=== PATIENT | male | born 1955 | race Caucasian/White ===

== ENCOUNTER → 2021-01-01 | Outpatient (CLI) | payer MEDICARE, OTHER | LOC: SLEEP-COR 15:20 | DX: I45.5 Other specified heart block (principal); I49.3 Ventricular premature depolarization; E11.9 Type 2 diabetes mellitus without complications; K21.9 Gastro-esophageal reflux disease without esophagitis; F32.9 Major depressive disorder, single episode, unspecified; E78.00 Pure hypercholesterolemia, unspecified; H91.90 Unspecified hearing loss, unspecified ear; R05 Cough; M54.9 Dorsalgia, unspecified; R53.83 Other fatigue; Z79.84 Long term (current) use of oral hypoglycemic drugs | CPT/HCPCS: 95810 ==